=== PATIENT | female | born 1975 | race Caucasian/White ===

== ENCOUNTER 2019-12-26 21:56 | Emergency (ER) | payer OTHER ==
[~2019-12-26] VITALS: Ht 167.6 cm; Wt 53.5 kg
[2019-12-26 22:01] VITALS: BP 127/47
[2019-12-26] MEDS ORDERED: TORADOL IM STA ×3 (22:11→22:41)
--- NOTE | 2019-12-26 22:20 | NUR ---
VITALS PATIENT JUST TOOK BP CUFF OFF, STATES SHE ISN'T WEARING IT IT HURTS HER ARM
--- NOTE | 2019-12-26 22:25 | ER.PDOC ---
General Chief Complaint: Abdomen Pain Stated Complaint: ABD PAIN Time seen by MD: 22:19 Source: patient Exam Limitations: no limitations History of Present Illness Initial Comments Abdominal pain for 2 years, no fever, chills, nausea, vomiting or diarrhea. Severity/Quality: moderate Radiation: no radiation Associated Symptoms: denies symptoms Exacerbated by: nothing Relieved By: nothing Allergies: Coded Allergies: No Known Allergies (Unverified , 12/26/19) Vital Signs First Vital Signs Date Time Temp Pulse Resp B/P (MAP) Pulse Ox O2 Delivery O2 Flow Rate FiO2 12/26/19 22:01 99.2 108 20 100 12/26/19 22:01 127/47 (73) Room Air Last Vital Signs Date Time Temp Pulse Resp B/P (MAP) Pulse Ox O2 Delivery O2 Flow Rate FiO2 12/26/19 22:01 99.2 108 20 127/47 (73) 100 Room Air Past Medical History Medical History: other (Liver cirrhosis) Surgical History: tubal Social History Alcohol Use: occassionally Drug Use: heroin, Meth Constitutional: no symptoms reported EENTM: no symptoms reported Respiratory: no symptoms reported Cardiovascular: no symptoms reported Gastrointestinal: see HPI Genitourinary: no symptoms reported Musculoskeletal: no symptoms reported All Other Systems: Reviewed and Negative Physical Exam General Appearance: No Apparent Distress, WD/WN Neck: Non-Tender, Full Range of Motion, Supple, Normal Inspection Respiratory: chest non-tender, lungs clear, normal breath sounds, no respiratory distress, no accessory muscle use Cardiovascular: Normal Peripheral Pulses, Regular Rate, Rhythm, No Edema, No Gallop, No JVD, No Murmur, Tachycardia Gastrointestinal: Normal Bowel Sounds, No Organomegaly, No Pulsatile Mass, Guarding, Tenderness (generalized) Back: Normal Inspection, No CVA Tenderness, No Vertebral Tenderness Extremities: Normal Range of Motion, Other (drug longoria on both upper extremities) Neurologic/Psychiatric: physician practice consultant II-XII NML as Tested, No Motor/Sensory Deficits, Alert, Normal Mood/Affect, Oriented x 3 Skin: Normal Color Results/Orders Results/Orders Orders - ILEANA CORRIGAN MD Cbc With Auto Diff (12/26/19 22:11) Comprehensive Metabolic Panel (12/26/19 22:11) Lipase (12/26/19 22:11) PT (12/26/19 22:11) Partial Thromboplastin Time. (12/26/19 22:11) Ct Abd/Pelvis Wo Iv Contrast (12/26/19 22:11) Ketorolac Tromethamine (Toradol) (12/26/19 22:11) Ekg-Routine (12/26/19 22:11) Ketorolac Tromethamine (Toradol) (12/26/19 22:11) Ketorolac Tromethamine (Toradol) (12/26/19 22:41) Urinalysis (12/26/19 22:41) Hcg Urine (12/26/19 22:41) Ketorolac Tromethamine (Toradol) (12/26/19 22:45) Drug Scrn Med W Confirmation (12/26/19 23:13) Opiate Confirmation Ur (12/26/19 22:20) Vital Signs Date Time Temp Pulse Resp B/P (MAP) Pulse Ox O2 Delivery O2 Flow Rate FiO2 12/26/19 22:01 99.2 108 20 127/47 (73) 100 Room Air 12/26/19 22:01 99.2 108 20 12/26/19 22:01 99.2 108 20 100 Administered Medications Medications (Trade) Dose Ordered Sig/Taryn Route PRN Reason Start Time Stop Time Status Last Admin Dose Admin Ketorolac Tromethamine (Toradol) 60 mg STAT STAT IM 12/26/19 22:41 12/26/19 22:43 DC 12/26/19 23:03 60 MG Laboratory Tests Test 12/26/19 22:20 12/26/19 22:33 12/26/19 22:40 Urine Opiates Screen PRESUMPTIVE POSITIVE Urine Methadone Screen NEGATIVE (c/o300ng/mL) Urine Barbiturates Screen NEGATIVE (c/o200ng/mL) Urine Phencyclidine Screen NEGATIVE (c/o 25ng/mL) Ur Amphetamine/Methamphetamine PRESUMPTIVE POSITIVE Urine MDMA Screen (Ecstasy) PRESUMPTIVE POSITIVE Urine Benzodiazepines Screen NEGATIVE (c/o200ng/mL) Urine Cocaine Metabolite Screen NEGATIVE (c/o300ng/mL) Ur Tetrahydrocannabinol (THC) Scrn NEGATIVE (c/o 50ng/mL) White Blood Count 5.2 10^3/uL (4.5-11.0) Red Blood Count 4.11 10^6/uL (4.00-5.20) Hemoglobin 12.8 g/dL (12.0-15.0) Hematocrit 38.3 % (36.0-46.0) Mean Corpuscular Volume 93.2 fL (78-100) Mean Corpuscular Hemoglobin 31.1 pg (26-34) Mean Corpuscular Hemoglobin Concent 33.4 g/dL (33-36.5) Red Cell Distribution Width 12.7 % (11.5-14.5) Platelet Count 198 10^3/uL (150-400) Mean Platelet Volume 10.4 fL (7.8-11.0) Neutrophils (%) (Auto) 46.3 % (41.0-85.0) Lymphocytes (%) (Auto) 39.0 % (24.0-44.0) Monocytes (%) (Auto) 10.8 % (5.0-12.0) Neutrophils # (Auto) 2.4 10^3/uL (1.8-7.7) Lymphocytes # (Auto) 2.03 10^3/uL1 (1.0-4.8) Monocytes # (Auto) 0.6 10^3/uL (0.3-0.8) Absolute Immature Granulocyte (auto 0 10^3 u/L (0-2) Absolute Eosinophils (auto) 0.2 10^3/uL (0.0-0.2) Immature Granulocytes % 0.00 % (0.00-0.50) Eosinophils % 3.5 % (0.0-5.0) Basophils % 0.4 % (0.0-0.2) H Basophils # 0.0 10^3/uL (0.0-0.1) Prothrombin Time 13.3 SEC (9.3-11.3) H Prothrombin Time INR (Non-Therap) 1.3 Activated Partial Thromboplast Time 30.0 SEC (24.67-30.72) Sodium Level 137 mmol/L (132-145) Potassium Level 3.9 mmol/L (3.6-5.2) Chloride Level 105.0 mmol/L (96-109) Carbon Dioxide Level 26.8 mmol/L (20.0-32) Anion Gap 9.1 Blood Urea Nitrogen 8 mg/dL (7-18) Creatinine 0.66 mg/dL (0.59-1.40) Estimated GFR () 118.3 (>/=60) Est GFR (CKD-EPI)(Non-Afr [place]) 97.7 (>/=60) BUN/Creatinine Ratio 12.0 Glucose Level 79 mg/dL (70-110) Calcium Level 9.1 mg/dL (8.4-10.5) Total Bilirubin 1.9 mg/dL (0.2-1.0) H Aspartate Amino Transferase (AST) 71 U/L (0-35) H Alanine Aminotransferase (ALT) 46 U/L (12-78) Alkaline Phosphatase 157 U/L (50-136) H Total Protein 7.2 g/dL (6.4-8.2) Albumin 2.6 g/dL (3.4-5.0) L Globulin 4.6 Albumin/Globulin Ratio 0.565 Lipase 136 U/L (114-286) Urine Collection Type CCMS Urine Color YELLOW (YELLOW) Urine Appearance CLEAR (CLEAR) Urine Bilirubin SMALL MG/DL (NEGATIVE) Urine Ketones NEGATIVE (NEGATIVE) Urine Specific [place] >=1.030 (1.005-1.035) Urine pH 7.0 (5.0-6.0) Urine Protein NEGATIVE (NEGATIVE) Urine Urobilinogen >=8.0 (NEGATIVE) Urine Nitrate NEGATIVE (NEGATIVE) Urine Leukocyte Esterase NEGATIVE (NEGATIVE) Urine Blood NEGATIVE (NEGATIVE) Urine Glucose NORMAL (NEGATIVE) Urine HCG, Qualitative NEGATIVE (NEGATIVE) Progress Progress CT abdomen/pelvis: No acute abnormality within the abdomen or pelvis. 2. Nodular hepatic contour, suspicious for cirrhosis. No focal hepatic lesion. Stigmata of portal hypertension are also present, including recanalization of the umbilical vein, small gastric and splenic varices, and mild central mesenteric edema. No ascites. 3. Cholecystectomy. 4. Additional findings, as above. EKG/XRAY/CT/US EKG: NSR, no ST T wave changes ER DEPART Departure Time of Disposition: 23:39 Disposition: 01 HOME, SELF-CARE Impression: Primary Impression: Abdominal pain Additional Impressions: Liver cirrhosis Methamphetamine abuse Ecstasy abuse Condition: Stable Referrals: PCP,UNKNOWN (PCP) PRIMARY CARE PROVIDER Additional Instructions: Ibuprofen F/U with your PCP in 2-3 days F/U with substance abuse program Return if worsening symptoms or symptoms Duration or Time Spent with Pa: 60 min Problem Qualifiers Primary Impression: Abdominal pain Abdominal location: unspecified location Qualified Codes: R10.9 - Unspecified abdominal pain Additional Impressions: Liver cirrhosis Hepatic cirrhosis type: unspecified hepatic cirrhosis Ascites presence: without ascites Qualified Codes: K74.60 - Unspecified cirrhosis of liver ILEANA CORRIGAN MD Dec 26, 2019 22:25
--- NOTE | 2019-12-26 22:40 | PCM.EKG ---
[facility] Test Date: 2019-12-26 Test Time: 22:37:50 Pat Name: GRUPO ORDAZ Department: Room: Gender: F Sand Analyst: PEDRO : 1975 Requested By: ILEANA CORRIGAN Order Number: [id number] Reading MD: Measurements Intervals [place] Rate: 100 P: 76 HI: 113 QRS: 64 QRSD: 84 T: 60 QT: 363 QTc: 469 Interpretive Statements Sinus tachycardia LAE, consider biatrial enlargement No previous ECG available for comparison Please click the below link to view image of tracing.
[2019-12-26] MEDS ORDERED: TORADOL ONE (22:45)
--- NOTE | 2019-12-26 22:46 | NUR ---
TO CT PATIENT TO CT VIA STRETCHER
[2019-12-26 22:50] LABS: BASOPHIL % 0.4 % (0.0-0.2); EOSINOPHIL # 0.2 10^3/uL (0.0-0.2); EOSINOPHIL % 3.5 % (0.0-5.0); LYMPHOCYTES # 2.03 10^3/uL1 (1.0-4.8); MEAN CORP HGB 31.1 pg (26-34); MONOCYTES # 0.6 10^3/uL (0.3-0.8); MONOCYTES % 10.8 % (5.0-12.0); NEUTROPHIL # 2.4 10^3/uL (1.8-7.7); NEUTROPHILS % 46.3 % (41.0-85.0); PLATELET COUNT 198 10^3/uL (150-400); RED CELL DISTRIBUTION WIDTH 12.7 % (11.5-14.5)
--- NOTE | 2019-12-26 22:59 | NUR ---
BACK FROM CT PATIENT BACK FROM CT, NO NEEDS VOICED BY PATIENT
[2019-12-26 23:00] LABS: CALCIUM 9.1 mg/dL (8.4-10.5); CARBON DIOXIDE 26.8 mmol/L (20.0-32)
[2019-12-26 23:06] LABS: APPEARANCE,URINE CLEAR (CLEAR); BILIRUBIN,URINE SMALL MG/DL (NEGATIVE); UA COLOR YELLOW (YELLOW)
--- NOTE | 2019-12-26 23:06 | NUR ---
VITALS PATIENT REFUSES TO WEAR BP CUFF OR PULSE OX, EDP STATES "THATS OK"
[2019-12-26 23:07] LABS: UROBILINOGEN,URINE >=8.0 (NEGATIVE)
--- NOTE | 2019-12-26 23:25 | DIREP ---
PROCEDURE:CT ABD/PELVIS WITHOUT CONTRAST TECHNIQUE:No oral contrast was given. Axial cuts were obtained through the abdomen and pelvis without IV contrast. The images were viewed at lung, liver, bone, and soft tissue settings. Sagittal and coronal reconstructions are provided. COMPARISON:None. INDICATIONS:Generalized abdominal pain FINDINGS: LOWER CHEST:The lung bases are clear. LIVER:Mildly nodular hepatic contour, suspicious for cirrhosis. No focal hepatic lesion is identified. BILIARY:Cholecystectomy. No biliary ductal dilatation. PANCREAS:Normal. SPLEEN:Normal size. Small calcified granuloma in the inferior aspect of the spleen. No focal splenic lesion. URINARY TRACT:Normal. No urinary tract calculus or hydronephrosis. The bladder is unremarkable. ADRENALS:Normal. AORTA/VASCULAR:Minimal calcified plaque at the aortic bifurcation. No aneurysm. Recanalization of the umbilical vein with small gastric and splenic varices, suggestive of portal hypertension. RETROPERITONEUM:Normal. No enlarged lymph nodes. BOWEL/MESENTERY:Somewhat limited evaluation secondary to a lack of oral contrast. No obstructive or inflammatory changes involving the GI tract. Minimal edema in the central mesentery, likely related to portal hypertension. No ascites. Normal appendix in the right lower quadrant. No free air or adenopathy. ABDOMINAL WALL:Unremarkable. PELVIS:Uterus and adnexa are normal for age. No pelvic free fluid or adenopathy. Small pelvic phleboliths. BONES:Mild, left convexity, lumbar scoliosis with mild disc and facet degenerative changes in lower lumbar spine. No acute abnormality or suspicious osseous lesion. OTHER:Normal. CONCLUSION: 1. No acute abnormality within the abdomen or pelvis. 2. Nodular hepatic contour, suspicious for cirrhosis. No focal hepatic lesion. Stigmata of portal hypertension are also present, including recanalization of the umbilical vein, small gastric and splenic varices, and mild central mesenteric edema. No ascites. 3. Cholecystectomy. 4. Additional findings, as above. Dictated by: Alexy Littlejohn MD on 12/26/2019 at 11:16 PM
--- NOTE | 2019-12-26 23:29 | NUR ---
UPDATE PATIENT LAYING IN BED, EQUAL CHEST RISE AND FALL. NO NEEDS VOICED BY PATIENT
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
== END 2019-12-26 23:55 | disposition home or self-care (01) ==
LOC: ER 21:56 → EDBD 21:56 → ER 23:55
DX: K74.60 Unspecified cirrhosis of liver (principal); F15.10 Other stimulant abuse, uncomplicated; F16.10 Hallucinogen abuse, uncomplicated; R18.8 Other ascites; Z79.1 Long term (current) use of non-steroidal anti-inflammatories (NSAID)
CPT/HCPCS: 36415; 74176; 80053; 80307; 80324; 81003; 81025; 83690; 85025; 85610; 85730; 93005; 96372; 99285; G0480 ×2; J1885